=== PATIENT | male | born 1980 | race Caucasian/White ===

== ENCOUNTER 2021-01-27 12:11 | Emergency (ER) | payer MEDICAID, SELFPAY ==
[2021-01-27 12:11] VITALS: BP 128/97; PULSE 117; RESP 16; TEMP 36.8; O2SAT 98; BMI 25.8
[2021-01-27 12:44] LABS: Microscopic, Urine URINE MICROSCOPIC (MICROSCOPIC)
[2021-01-27 12:48] LABS: Appearance,Urine SL CLOUDY (Clear); Blood, Urine 3+ (Negative); Color,Urine YELLOW (Yellow); Glucose,Urine (UA) Negative (Negative); Ketones,Urine 1+ (Negative); Leukocyte Esterase,Urine Negative (Negative); Nitrate,Urine Negative (Negative); Protein,Urine 2+ (Negative); Specific Gravity, Urine >= 1.030 (1.005-1.030)
[2021-01-27 12:49] LABS: Bilirubin,Urine Negative (Negative); Urobilinogen,Urine 0.2 EU/dl (0.2)
[2021-01-27 12:57] LABS: Amorphous Sediment,Urine 2+ /lpf; Mucus,Urine 1+ /lpf; RBC,Urine 20-50 #/hpf (0-3)
[2021-01-27 13:15] LABS: Barbiturates Screen,Urine Negative ng/ml (<200); Benzodiazepines Screen,Urine Negative ng/ml (<200)
[2021-01-27 13:16] LABS: Cannabinoid Screen,Urine Positive ng/ml (<50)
[2021-01-27 13:17] LABS: Cocaine Screen,Urine Negative ng/ml (<300); Methadone Screen,Urine Negative ng/ml (<300)
[2021-01-27 13:18] LABS: Opiate Screen,Urine Negative ng/ml (<300); Phencyclidine Screen,Urine Negative ng/ml (<25)
--- NOTE | 2021-01-27 14:02 | [facility].EDGENADL ---
ED Disposition Clinical Impression: Substance abuse, Dehydration Disposition: Left Against Medical Advice Condition on Discharge: Good Instructions: DI for Altered Mental Status Referrals: PCP,No [Primary Care Provider] - - Critical Care Critical Care Time: No Attestation: On 01/27/21, the high probability of a clinically significant, sudden or life threatening deterioration of the following system(s) required my full and direct attention, intervention and personal management. The time I documented below is in addition to time spent performing reported procedures but includes the following listed in this critical care notation. Medical Decision Making - Eitan Inquiry Pt receiving controlled substance: No Vital Signs: 01/27/21 12:11 01/27/21 15:11 01/27/21 15:30 Temperature 98.2 F Temperature Source Oral Pulse Rate Pulse Rate [Left Radial] 117 H 109 H 102 H Respiratory Rate 16 20 18 Blood Pressure Blood Pressure [Right Arm] 128/97 H 118/93 H Blood Pressure Mean [Right Arm] 107 101 Blood Pressure Source [Right Arm] Automatic Cuff Blood Pressure Position [Right Arm] Sitting 02 Sat by Pulse Oximetry 98 98 98 Oxygen Delivery Method Room Air Room Air Room Air 01/27/21 15:40 Temperature 98.3 F Temperature Source Pulse Rate 103 H Pulse Rate [Left Radial] Respiratory Rate 20 Blood Pressure 143/85 H Blood Pressure [Right Arm] Blood Pressure Mean [Right Arm] Blood Pressure Source [Right Arm] Blood Pressure Position [Right Arm] 02 Sat by Pulse Oximetry Oxygen Delivery Method Room Air - Lab Data Lab Results 01/27/21 12:29: Urine Color Yellow, Urine Appearance Sl cloudy, Urine pH 6.0, Ur Specific [place] >= 1.030, Urine Protein 2+, Urine Glucose (UA) Negative, Urine Ketones 1+, Urine Blood 3+, Urine Nitrate Negative, Urine Bilirubin Negative, Urine Urobilinogen 0.2, Ur Leukocyte Esterase Negative, Urine RBC 20-50, Urine WBC None, Ur Squamous Epith Cells 5-10, Amorphous Sediment 2+, Urine Bacteria None, Hyaline Casts 3-5, Urine Mucus 1+ 01/27/21 12:29: Urine Opiates Screen Negative, Urine Methadone Screen Negative, Ur Barbituates Screen Negative, Ur Phencyclidine Scrn Negative, U Benzodiazepines Scrn Negative, Urine Cocaine Screen Negative, U Marijuana (THC) Screen Positive H 01/27/21 14:25: WBC 12.9 H, RBC 5.90, Hgb 18.4 H*, Hct 54.5 H, MCV 92.4, MCH 31.2, MCHC 33.8, RDW 13.1, Plt Count 216, MPV 8.2, Neut % (Auto) 85.4 H, Lymph % (Auto) 10.2, Will % (Auto) 4.1, Eos % (Auto) 0.0 L, Baso % (Auto) 0.3, Neut # (Auto) 11.0 H, Lymph # (Auto) 1.3, Will # (Auto) 0.5, Eos # (Auto) 0.0, Baso # (Auto) 0.0, Total Counted 100, Neutrophils % (Manual) 87 H, Lymphocytes % (Manual) 8 L, Monocytes % (Manual) 5, Platelet Estimate Normal, RBC Morphology Normal 01/27/21 14:25: Sodium 141, Potassium 3.6, Chloride 102, Carbon Dioxide 27, Anion Gap 15.6 H, BUN 41 H, Creatinine 1.00, Estimated Creat Clear 116, Estimated GFR 84, Est GFR ( Amer) 101, Glucose 192 H, Calcium 9.8, Total Bilirubin 1.4 H, AST 251 H, ALT 125 H, Alkaline Phosphatase 99, Total Protein 8.6 H, Albumin 4.7, Globulin 3.9 H, Albumin/Globulin Ratio 1.2 01/27/21 14:25: Plasma/Serum Alcohol < 10 Result diagrams: 01/27/21 14:25 01/27/21 14:25 Orders (Tests/Meds): ED MEDICATIONS Discontinued Medications Generic Name Dose Route Start Last Admin Trade Name Sedrickq PRN Reason Stop Dose Admin Sodium Chloride 1,000 mls @ 999 mls/hr 01/27/21 12:30 01/27/21 14:42 Sod Chlor 0.9% 1000ml Bag IV 01/27/21 13:30 999 mls/hr .[id number] TAYLOR Administration ORDERS Category Date Time Status Drug Screen,Urine Stat Lab 01/27/21 12:29 Results Medical Decision Narrative: Patient reported by nurse to have signed out AMA. Patient's behavior is very likely drug-induced as per his admission. Likely bath salts or spice. General Adult HPI - General Chief complaint: Altered Mental Status Stated complaint: ams Time Seen by Provider:
[2021-01-27 14:48] LABS: Chloride 102 mmol/L (98-107); Potassium 3.6 mmoL/L (3.5-5.1); Sodium 141 mmol/L (136-145)
[2021-01-27 14:51] LABS: Alanine Aminotransferase 125 U/L (12-78); Albumin Level 4.7 g/dl (3.5-5.0); Albumin/Globulin Ratio 1.2 (1.1-1.8); Alkaline Phosphatase 99 U/L (38-126); Anion Gap 15.6 mEq/L (5-15); Aspartate Amino Transferase 251 U/L (17-59); Bilirubin,Total 1.4 mg/dl (0.2-1.3); Blood Urea Nitrogen 41 mg/dl (9-20); Calcium 9.8 mg/dl (8.4-10.2); Carbon Dioxide 27 mmol/L (22.0-30.0); Creatinine Clearance Estimated 116 mL/min (50-200); Estimated Glomerular Filt Rate 84 ml/min (>60); GFR (African American) 101 ML/MIN (>60); Globulin 3.9 g/dL (1.3-3.2); Glucose 192 mg/dl (74-100); Total Protein,Serum 8.6 g/dl (6.3-8.2)
[2021-01-27 14:54] LABS: Ethyl Alcohol < 10 mg/dl (0-10)
[2021-01-27 15:11] VITALS: BP 118/93; PULSE 109; RESP 20; O2SAT 98
[2021-01-27 15:30] VITALS: PULSE 102; RESP 18; O2SAT 98
[2021-01-27 15:34] LABS: Basophils % 0.3 % (0.1-2.0); Hematocrit 54.5 % (42.0-52.0); Lymphocytes # 1.3 K/mm3 (0.7-4.5); Lymphocytes % 10.2 % (10-50); Mean Corpuscular HGB Conc 33.8 g/dL (31.8-35.4); Mean Corpuscular Hemoglobin 31.2 pg (27.0-31.2); Mean Corpuscular Volume 92.4 fl (80-94); Mean Platelet Volume 8.2 fl (7.4-10.4); Monocytes # 0.5 K/mm3 (0.1-1.0); Monocytes % 4.1 % (1.7-9.3); Neutrophils % 85.4 % (37.0-80.0); Platelet Count 216 K/mm3 (142-424); Red Cell Distribution Width 13.1 % (11.5-17.5); White Blood Count 12.9 K/mm3 (4.8-10.8)
[2021-01-27 15:36] LABS: MANUAL DIFFERENTIAL MANUAL DIFFERENTIAL (MANUAL DIFF)
[2021-01-27 15:40] VITALS: BP 143/85; PULSE 103; RESP 20; TEMP 36.8; O2SAT 99
--- NOTE | 2021-01-27 15:40 | PC.NURSE ---
Patient refusing to stay for continuation of treatment plan, patient alert and oriented x 4, verbalized understanding of risks of leaving AMA. Patient ambulated out of ED without difficulty with family member.
[2021-01-27 15:41] LABS: Lymphocytes % 8 % (10-50); Monocytes % 5 % (2-9); Neutrophils % 87 % (42-76); Platelet Estimate Normal; RBC Morphology Normal; Total Cells Counted 100
[2021-01-27 15:45] LABS: Hemoglobin 18.4 g/dL (14.1-18.0)
[2021-01-31 11:24] LABS: Amphetamine Positive (.); Amphetamines Positive (.); Methamphetamine Positive (.)
[2021-01-31 13:10] LABS: Amphetamine (GC/MS) >3000 ng/mL (Cutoff=500); Methamphetamine (GC/MS) >3000 ng/mL (Cutoff=500)
== END 2021-01-27 15:40 | disposition left against medical advice (07) ==
PROVIDERS: Emergency Provider Emergency Medicine
DX: E86.0 Dehydration (principal); F12.10 Cannabis abuse, uncomplicated; F19.10 Other psychoactive substance abuse, uncomplicated; F17.210 Nicotine dependence, cigarettes, uncomplicated
CPT/HCPCS: 80053; 80305; 80324; 81001; 85007; 85025; 96365; 99283